=== PATIENT | male | born 1965 | race Caucasian/White ===

== ENCOUNTER → 2022-02-02 09:51 | Outpatient (BNVA) | payer OTHER, SELFPAY | PROVIDERS: Visit Provider Nurse Practitioner Family | DX: R68.89 Other general symptoms and signs (principal); J01.90 Acute sinusitis, unspecified; B96.89 Other specified bacterial agents as the cause of diseases classified elsewhere | CPT/HCPCS: 87426 ==

== ENCOUNTER → 2022-02-05 11:13 | Outpatient (BNVA) | payer OTHER, SELFPAY | PROVIDERS: Visit Provider Nurse Practitioner Family | DX: R68.89 Other general symptoms and signs (principal); J02.9 Acute pharyngitis, unspecified; J01.90 Acute sinusitis, unspecified; B96.89 Other specified bacterial agents as the cause of diseases classified elsewhere; H10.9 Unspecified conjunctivitis; J10.1 Influenza due to other identified influenza virus with other respiratory manifestations | CPT/HCPCS: 87071; 87400; 87880 ==